=== PATIENT | male | born 1995 | race Two or more races ===

== ENCOUNTER 2017-08-31 17:35 | Emergency (ER) | payer OTHER ==
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
[2017-08-31 22:22] VITALS: BP 120/78
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
== END 2017-08-31 19:10 | disposition home or self-care (01) ==
LOC: MW.ED 17:35
DX: S02.2XXA Fracture of nasal bones, initial encounter for closed fracture (principal); Z87.891 Personal history of nicotine dependence; Y04.0XXA Assault by unarmed brawl or fight, initial encounter; Y92.149 Unspecified place in prison as the place of occurrence of the external cause
CPT/HCPCS: 70160; 70160-26; 99283

== ENCOUNTER 2017-09-08 10:29 | Day surgery (SDC) | payer SELFPAY ==
--- NOTE | 2017-09-08 09:49 | PCM.HPR ---
H & P Addendum review - H & P Addendum Review Date of Original H & P: 09/07/17 Date Reviewed: 09/08/17 Time Reviewed: 11:30 Patient was Examined: No Changes
[~2017-09-08 10:29] MED LIST: Lactated Ringers 1,000 ML IV SCH
--- NOTE | 2017-09-08 10:57 | PCM.PREANE ---
Preanesthetic Assessment - Anesthesia/Transfusion/Family Hx Anesthesia History: Prior Anesthesia Without Reaction Family History of Anesthesia Reaction: No Transfusion History: No Prior Transfusion(s) Intubation History: History of Difficulty Intubation - Review of Systems General: No Symptoms Pulmonary: No Symptoms Cardiovascular: No Symptoms Gastrointestinal: No Symptoms Neurological: No Symptoms Other: Reports: None - Physical Assessment NPO Status Date: 09/07/17 Height: 1.85 m Weight: 92.986 kg ASA Class: 1 Mental Status: Alert & Oriented x3 Airway Class: Mallampati = 1 Dentition: Reports: Normal Dentition ROM/Head Extension: Full Lungs: Clear to Auscultation, Normal Respiratory Effort Cardiovascular: Regular Rate, Regular Rhythm - Allergies Allergies/Adverse Reactions: Allergies Allergy/AdvReac Type Severity Reaction Status Date / Time No Known Allergies Allergy Verified 08/31/17 18:13 - Anesthesia Plan Pre-Op Medication Ordered: None - Acknowledgements Anesthesia Type Planned: General Anesthesia Pt an Appropriate Candidate for the Planned Anesthesia: Yes Alternatives and Risks of Anesthesia Discussed w Pt/Guardian: Yes Pt/Guardian Understands and Agrees with Anesthesia Plan: Yes PreAnesthesia Questionnaire HEENT History: Reports: None Cardiovascular History: Reports: None Respiratory History: Reports: None Gastrointestinal History: Reports: GERD Genitourinary History: Reports: None Musculoskeletal History: Reports: None Neurological History: Reports: Headaches, Chronic, Migraines Psychiatric History: Reports: Depression Endocrine/Metabolic History: Reports: None Hematologic History: Reports: None Immunologic History: Reports: None Dermatologic History: Reports: None - Infectious Disease History Infectious Disease History: Reports: Chicken Pox - Past Surgical History Head Surgeries/Procedures: Reports: None HEENT Surgical History: Reports: Oral Surgery - SUBSTANCE USE Smoking Status *Q: Former Smoker Tobacco Use Within Last Twelve Months: Cigarettes Second Hand Smoke Exposure: No Days Per Week of Alcohol Use: 1 Number of Drinks Per Day: 2 Total Drinks Per Week: 2 Recreational Drug Use History: Yes Recreational Drug Type: Reports: Marijuana/Hashish, Methamphetamine Recreational Drug Last Use: 05/07 - HOME MEDS Home Medications: Home Meds Calcium Polycarbophil [Fiber Tabs] 2 tab PO DAILY 09/07/17 [History] - CURRENT (IN HOUSE) MEDS Current Meds: Current Medications Lactated Ringer's (Ringers, Lactated) 1,000 mls @ 125 mls/hr IV ASDIRECTED LAYTON Last Admin: 09/08/17 10:48 Dose: 125 mls/hr
[2017-09-08] MEDS ORDERED: Propofol 200 MG/20 ML SDV ONE (11:00)
[2017-09-08] MEDS ORDERED: Ondansetron 4 MG/2 ML SDV ONE (11:00)
[2017-09-08] MEDS ORDERED: fentaNYL 100 MCG/2 ML SDV ONE ×2 (11:01→11:49)
[2017-09-08] MEDS ORDERED: Midazolam 1 MG/ML 2 ML SDV ONE (11:01)
[2017-09-08] MEDS ORDERED: Ketorolac 30 MG/ML SDV ONE (11:03)
[2017-09-08] MEDS ORDERED: Oxymetazoline 0.05% Nasal Spray 15 ML Bottle ONE (11:17)
[2017-09-08] MEDS ORDERED: Lidocaine 2% with EPINEPHrine 1:100,000 20 ML MDV ONE (11:17)
[2017-09-08] MEDS ORDERED: Sodium Chloride 0.9% 20 ML ONE (11:47)
--- NOTE | 2017-09-08 12:08 | PCM.OPNOTE ---
- General Post-Op/Procedure Note Date of Surgery/Procedure: 09/08/17 Operative Procedure(s): Manipulation under anesthesia of fracture nasal bones Findings: depressed fracture of R nasal bone; minimal outward deviation of L nasal bone Pre Op Diagnosis: Fracture nasal bones Post-Op Diagnosis: Fracture nasal bones Anesthesia Technique: General LMA Primary Surgeon: Nikkie Schneider Fluid Replacement, Intraop: 200 Condition: Good Free Text/Narrative:: Anesthesiologist: Elena THURSTON Operative procedure: An informed consent was obtained and patient was brought back to the operating room and laid supine on the operating table. Timeout was performed. Anesthesia was administered with laryngeal mask airway. Nasal deformity and findings as noted. With digital manipulation and help of Walsham's nasal forceps the right nasal bone was elevated and repositioned. The nasal pyramid seem to align to its midline. Steri-Strips and nasal cast was applied. This concluded the procedure and patient was handed over to anesthesia for recovery
--- NOTE | 2017-09-08 13:01 | PCM.POSTAN ---
POST ANESTHESIA ASSESSMENT - MENTAL STATUS Mental Status: Alert, Oriented - RESPIRATORY Respiratory Status: Respiratory Rate WNL, Airway Patent, O2 Saturation Stable - CARDIOVASCULAR CV Status: Pulse Rate WNL, Blood Pressure Stable - GASTROINTESTINAL GI Status: No Symptoms - POST OP HYDRATION Hydration Status: Adequate & Stable
--- NOTE | 2017-09-08 13:01 | PCM48HPAN ---
Post Anesthesia Note - EVALUATION WITHIN 48HRS OF ANESTHETIC Vital Signs in Normal Range: Yes Patient Participated in Evaluation: Yes Respiratory Function Stable: Yes Airway Patent: Yes Cardiovascular Function Stable: Yes Hydration Status Stable: Yes Pain Control Satisfactory: Yes Nausea and Vomiting Control Satisfactory: Yes Mental Status Recovered: Yes
[2017-09-08 13:15] VITALS: BP 106/59
== END 2017-09-08 13:35 | disposition home or self-care (01) ==
LOC: MW.SDS 10:29
PROVIDERS: ATTEND Otolaryngology
DX: S02.2XXA Fracture of nasal bones, initial encounter for closed fracture (principal); J34.2 Deviated nasal septum; M95.0 Acquired deformity of nose; J34.89 Other specified disorders of nose and nasal sinuses; F17.210 Nicotine dependence, cigarettes, uncomplicated; K21.9 Gastro-esophageal reflux disease without esophagitis; Y04.0XXA Assault by unarmed brawl or fight, initial encounter; Y92.143 Cell of prison as the place of occurrence of the external cause; N40.1 Benign prostatic hyperplasia with lower urinary tract symptoms; R35.1 Nocturia; Z91.018 Allergy to other foods; Z79.899 Other long term (current) drug therapy
CPT/HCPCS: 21320; A9270; J1885; J2250; J2405; J3010; J7120; 00160; J2704

== ENCOUNTER 2017-11-02 19:12 | Emergency (ER) | payer MEDICAID ==
--- NOTE | 2017-11-02 19:30 | EDM.PDOC ---
ED HPI GENERAL MEDICAL PROBLEM - General Chief Complaint: ENT Problem Stated Complaint: FEVER/SORE THROAT/UPSET STOMACH Time Seen by Provider: 11/02/17 19:30 Source of Information: Reports: Patient History Limitations: Reports: No Limitations - History of Present Illness INITIAL COMMENTS - FREE TEXT/NARRATIVE: HISTORY AND PHYSICAL: History of present illness: [22-year-old male presenting to the emergency department with chief complaint of sore throat and headache 1 day. Patient states that today woke up with a sore throat. He has as had an associated headache as well as nausea without vomiting. Does admit to some chills. He is a 6-pack-year smoker. Patient does admit to drinking very little water and having some constipation. He denies any chest pain, palpitations, shortness of breath, cough, abdominal pain, dysuria, leg pain, or swelling. Vital signs: Afebrile, normotensive, non-tachycardic On examination there is erythema and exudate tonsils bilaterally as well as the posterior aspect of the oral cavity.] Review of systems: As per history of present illness and below otherwise all systems reviewed and negative. Past medical history: As per history of present illness and as reviewed below otherwise noncontributory. Surgical history: As per history of present illness and as reviewed below otherwise noncontributory. Social history: No reported history of drug or alcohol abuse. Family history: As per history of present illness and as reviewed below otherwise noncontributory. Physical exam: HEENT: Atraumatic, normocephalic, pupils reactive, negative for conjunctival pallor or scleral icterus, mucous membranes moist, throat erythema and exudate, neck supple, nontender, trachea midline. Lungs: Clear to auscultation, breath sounds equal bilaterally, chest nontender. Heart: S1S2, regular, negative for clicks, rubs, or JVD. Abdomen: Soft, nondistended, nontender. Negative for masses or hepatosplenomegaly. Negative for costovertebral tenderness. Pelvis: Stable nontender. Genitourinary: Deferred. Rectal: Deferred. Extremities: Atraumatic, negative for cords or calf pain. Neurovascular unremarkable. Neuro: Awake, alert, oriented. Cranial nerves II through XII unremarkable. Cerebellum unremarkable. Motor and sensory unremarkable throughout. Exam nonfocal. Diagnostics: [Influenza, Rapid strep] Therapeutics: [z-pack] Impression: [Sinusitis] Plan: [Influenza and rapid strep were negative however patient does have signs and symptoms of acute sinusitis. Will treat with Z-Luis A. Instructed patient to return emergency room if he had any new or worsening symptoms.] throat Pain Score (Numeric/FACES): 6 headache Pain Score (Numeric/FACES): 9 abdominal Pain Score (Numeric/FACES): 3 - Related Data Allergies Allergy/AdvReac Type Severity Reaction Status Date / Time No Known Allergies Allergy Verified 11/02/17 19:24 Home Meds: Home Meds . [No Known Home Meds] 11/02/17 [History] Past Medical History HEENT History: Reports: None Cardiovascular History: Reports: None Respiratory History: Reports: None Gastrointestinal History: Reports: GERD Genitourinary History: Reports: None Musculoskeletal History: Reports: None Neurological History: Reports: Headaches, Chronic, Migraines Psychiatric History: Reports: Depression Endocrine/Metabolic History: Reports: None Hematologic History: Reports: None Immunologic History: Reports: None Dermatologic History: Reports: None - Infectious Disease History Infectious Disease History: Reports: Chicken Pox - Past Surgical History Head Surgeries/Procedures: Reports: None HEENT Surgical History: Reports: Oral Surgery Cardiovascular Surgical History: Reports: None Respiratory Surgical History: Reports: None Social & Family History - Family History Family Medical History: Noncontributory Neurological: Reports: Migraines - Tobacco Use Smoking Status *Q: Current Every Day Smoker Years of Tobacco use: 5 Packs/Tins Daily: 1 Used Tobacco, but Quit: Yes Month/Year Tobacco Last Used: 05/07 Second Hand Smoke Exposure: No - Caffeine Use Caffeine Use: Reports: Coffee - Alcohol Use Days Per Week of Alcohol Use: 1 Number of Drinks Per Day: 2 Total Drinks Per Week: 2 - Recreational Drug Use Recreational Drug Use: Yes Drug Use in Last 12 Months: Yes Recreational Drug Type: Reports: Marijuana/Hashish Recreational Drug Use Frequency: Socially Recreational Drug Last Use: 05/07 ED ROS GENERAL - Review of Systems Review Of Systems: See Below ED EXAM, GENERAL - Physical Exam Exam: See Below Course - Vital Signs Last Recorded V/S: Last Vital Signs Temp 97.7 F 11/02/17 21:05 Pulse 82 11/02/17 21:05 Resp 18 11/02/17 21:05 BP 159/101 H 11/02/17 21:05 Pulse Ox 95 11/02/17 21:05 - Orders/Labs/Meds Orders: Active Orders 24 hr Category Date Time Status CULTURE STREP A CONFIRMATION [RM] Stat Lab 11/02/17 20:17 Results STREP SCRN A RAPID W CULT CONF [RM] Stat Lab 11/02/17 20:17 Results Departure - Departure Time of Disposition: 21:10 Disposition: Home, Self-Care 01 Condition: Good Clinical Impression: Sinusitis - Discharge Information Instructions: Sinusitis, Adult, [id number] Referrals: PCP,None [Primary Care Provider] - Forms: ED Department Discharge Additional Instructions: My general discharge The following information is given to patients seen in the emergency department who are being discharged to home. This information is to outline your options for follow-up care. We provide all patients seen in our emergency department with a follow-up referral. The need for follow-up, as well as the timing and circumstances, are variable depending upon the specifics of your emergency department visit. If you don't have a primary care physician on staff, we will provide you with a referral. We always advise you to contact your personal physician following an emergency department visit to inform them of the circumstance of the visit and for follow-up with them and/or the need for any referrals to a consulting specialist. The emergency department will also refer you to a specialist when appropriate. This referral assures that you have the opportunity for follow-up care with a specialist. All of these measure are taken in an effort to provide you with optimal care, which includes your follow-up. Under all circumstances we always encourage you to contact your private physician who remains a resource for coordinating your care. When calling for follow-up care, please make the office aware that this follow-up is from your recent emergency room visit. If for any reason you are refused follow-up, please contact the [facility] Emergency Department at and asked to speak to the emergency department charge nurse. [facility] Primary Care [address] [place] [phone] - My Orders Last 24 Hours: My Active Orders 11/02/17 20:17 CULTURE STREP A CONFIRMATION [RM] Stat STREP SCRN A RAPID W CULT CONF [RM] Stat - Assessment/Plan Last 24 Hours: My Active Orders 11/02/17 20:17 CULTURE STREP A CONFIRMATION [RM] Stat STREP SCRN A RAPID W CULT CONF [RM] Stat
[2017-11-02 21:22] VITALS: BP 127/75
== END 2017-11-02 21:35 | disposition home or self-care (01) ==
LOC: MW.ED 19:12
DX: J32.9 Chronic sinusitis, unspecified (principal); F17.210 Nicotine dependence, cigarettes, uncomplicated
CPT/HCPCS: 87081; 87804; 87880; 99283

== ENCOUNTER 2018-05-23 13:45 | Emergency (ER) | payer MEDICAID ==
[2018-05-23] MEDS ORDERED: Diphtheria,Pertussis(Acell),Tetanus Vaccine 0.5 ML Syringe IM ONE (14:00)
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
[2018-05-23] MEDS ORDERED: Ibuprofen 800 MG Tab PO ONE (14:03)
--- NOTE | 2018-05-23 14:39 | CR ---
EXAMINATION: Left shoulder HISTORY: Pain COMPARISON: 11/05/2013 TECHNIQUE: 3 views FINDINGS/IMPRESSION: There is no acute osseous abnormality, dislocation, or fracture. Bone mineraliza tion and joint spaces are grossly preserved.
[2018-05-23 15:04] VITALS: BP 122/78
== END 2018-05-23 15:04 ==
LOC: MW.ED 13:45
DX: S01.511A Laceration without foreign body of lip, initial encounter (principal); S40.012A Contusion of left shoulder, initial encounter; S05.11XA Contusion of eyeball and orbital tissues, right eye, initial encounter; Y04.8XXA Assault by other bodily force, initial encounter; Y92.149 Unspecified place in prison as the place of occurrence of the external cause; Z87.891 Personal history of nicotine dependence; Z23 Encounter for immunization
CPT/HCPCS: 73030; 90471; 90715; 99283; A9270